=== PATIENT | male | born 1960 | race Caucasian/White ===

== ENCOUNTER 2019-12-26 15:28 | Emergency (ER) | payer MEDICARE, MEDICAID ==
[~2019-12-26] VITALS: Ht 185.4 cm; Wt 123.0 kg
[~2019-12-26 15:28] MED LIST: IBUP-1985 PO
[2019-12-26] MEDS ORDERED: traMADol 50MG tablet PO ONE (16:15)
[2019-12-26] MEDS ORDERED: ketorolac tromethamine 15mg/ml inj. IM ONE (16:15)
== END 2019-12-26 17:15 | disposition home or self-care (01) ==
LOC: ER 15:28
DX: S80.212A Abrasion, left knee, initial encounter (principal); M54.5 Low back pain; G89.29 Other chronic pain; M79.604 Pain in right leg; E11.9 Type 2 diabetes mellitus without complications; F17.220 Nicotine dependence, chewing tobacco, uncomplicated; F15.90 Other stimulant use, unspecified, uncomplicated; F12.90 Cannabis use, unspecified, uncomplicated; Z56.0 Unemployment, unspecified; Z79.899 Other long term (current) drug therapy; X58.XXXA Exposure to other specified factors, initial encounter; Y93.89 Activity, other specified; Y92.89 Other specified places as the place of occurrence of the external cause; Y99.8 Other external cause status
CPT/HCPCS: 72100; 96372; 99284; J1885

== ENCOUNTER 2019-12-30 15:00 | Emergency (ER) | payer MEDICARE, MEDICAID ==
[~2019-12-30] VITALS: Ht 185.4 cm; Wt 122.0 kg
[2019-12-30] MEDS ORDERED: dexamethasone 4mg tablet PO ONE (15:45)
--- NOTE | 2019-12-30 16:27 | NUR ---
MRI screening form filled out and faxed to MRI.
[2019-12-30] MEDS ORDERED: ketorolac trometh. 30mg/ml inj. IM ONE (17:55)
[2019-12-30] MEDS ORDERED: acetaminophen 325mg tablet PO ONE (17:55)
[2019-12-30 18:17] VITALS: BP 139/95
== END 2019-12-30 18:18 | disposition home or self-care (01) ==
LOC: ER 15:01
DX: R19.4 Change in bowel habit (principal); M54.5 Low back pain; E11.9 Type 2 diabetes mellitus without complications; G89.29 Other chronic pain; F12.90 Cannabis use, unspecified, uncomplicated; F15.90 Other stimulant use, unspecified, uncomplicated; Z56.0 Unemployment, unspecified; Z98.890 Other specified postprocedural states
CPT/HCPCS: 72148; 96372; 99284; J1885

== ENCOUNTER 2023-10-25 11:25 | Emergency (ER) | payer MEDICARE, MEDICAID ==
[~2023-10-25] VITALS: Ht 185.4 cm; Wt 101.7 kg
[2023-10-25 11:30] VITALS: BP 159/68; PULSE 79; RESP 16; TEMP 98.7; O2SAT 99
[2023-10-25] MEDS ORDERED: NAPR-56 PO (11:51)
== END 2023-10-25 12:04 | disposition home or self-care (01) ==
LOC: ER 11:25
DX: M25.561 Pain in right knee (principal); G89.29 Other chronic pain; E11.9 Type 2 diabetes mellitus without complications; F15.90 Other stimulant use, unspecified, uncomplicated; F12.90 Cannabis use, unspecified, uncomplicated; Z56.0 Unemployment, unspecified; Z79.899 Other long term (current) drug therapy
CPT/HCPCS: 99282

== ENCOUNTER 2024-05-02 20:11 | Emergency (ER) | payer BC, MEDICAID ==
[~2024-05-02] VITALS: Ht 185.4 cm; Wt 100.0 kg
[2024-05-02 20:13] VITALS: BP 130/70; PULSE 77; RESP 15; TEMP 98.8; O2SAT 95
[2024-05-02] MEDS: TETanus/Pertussis (Acell)/Diphther VAC/PF (Tdap-Adult) 0.5ml syringe IMVAC ONE (20:42)
[2024-05-02] MEDS: LIDOcaine 1% 30ml preserv. free vial IJ STA (21:16)
== END 2024-05-02 21:21 | disposition home or self-care (01) ==
LOC: ER 20:12
DX: S69.81XA Other specified injuries of right wrist, hand and finger(s), initial encounter (principal); E11.9 Type 2 diabetes mellitus without complications; G89.29 Other chronic pain; M54.9 Dorsalgia, unspecified; F12.90 Cannabis use, unspecified, uncomplicated; F15.90 Other stimulant use, unspecified, uncomplicated; Z98.890 Other specified postprocedural states; Z56.0 Unemployment, unspecified; Z79.1 Long term (current) use of non-steroidal anti-inflammatories (NSAID); W18.49XA Other slipping, tripping and stumbling without falling, initial encounter; Y93.89 Activity, other specified; Y92.89 Other specified places as the place of occurrence of the external cause; Y99.8 Other external cause status
CPT/HCPCS: 64450; 99284; A6449

== ENCOUNTER 2025-03-28 13:25 | Emergency (ER) | payer BC, MEDICAID ==
[~2025-03-28] VITALS: Ht 185.4 cm; Wt 113.6 kg
[2025-03-28 13:28] VITALS: BP 151/83; PULSE 77; O2SAT 96
--- NOTE | 2025-03-28 14:15 | RADIOLOGY REPORT ---
EXAM: DI ANKLE, COMPLETE(3VW MIN) CLINICAL INDICATION: ANKLE PAIN TECHNIQUE: DI ANKLE, COMPLETE(3VW MIN) Comparison: None FINDINGS/IMPRESSION: There is a vague lucency involving the distal fibula, which could represent a nondisplaced fracture. CT recommended.
[2025-03-28] MEDS: HYDROcodone/acetaminophen 10/325mg tab PO ONE (14:30)
--- NOTE | 2025-03-28 14:47 | Physician Documentation ---
History of Present Illness ~ Chief Complaint: Foot pain Stated Complaint: L FOOT INJURY Time Seen by MD: 14:06 OK to notify your PCP?: Yes Primary Medical Doctor: [facility] Source: patient Mode of Arrival: Wheelchair Exam Limitations: no limitations HPI Walter is a 64-year-old male presenting with left ankle pain after rolling it 5 days ago. He states he received an x-ray at the time which was negative for a fracture although the swelling appears to be getting worse, unable to ambulate and he has pain into the back of his leg. Yesterday as he was moving his foot he heard a loud popping sound with increased pain. He was treating at home with ibuprofen last dose couple days ago. No history of diabetes. Tetanus witin 5 years: Yes Medication Reconciliation Allergies: Coded Allergies: No Known Allergies (Unverified , 05/02/24) Scheduled PRN Hydrocodone Bit/Acetaminophen (Hydrocodon-Acetaminophn 10-325 tablet), 1 TAB PO QID PRN PRN for pain Ibuprofen (Ibuprofen), 1 TAB PO Q8H PRN for pain Naproxen (Naproxen), 1 TAB PO Q12H PRN for pain Past Medical History Past Medical History: Diabetes, Chronic Back Pain Past Surgical History: orthopedic surgeries Other Past Family History: noncontributory Alcohol Use: Rarely Drug Use: marijuana, methamphetamine Lives with: Spouse Lives In: Home Occupation: unemployed Review of Systems All Other Systems at this time: Reviewed and Negative Physical Exam Vital Signs: RN Vital Signs have been reviewed: Yes, Temperature: 97.6, Source: Oral, Heart Rate: 77, Respiratory Rate: 16, BP: 151/83, Pulse Oximetry: 96, Weight: 113.640 Pulse Oximetry Reflects: adequate oxygenation Physical Exam General: Alert, no apparent distress. HEENT: PERRL, EOMI, no injection, moist mucous membranes. Neck: Full range of motion. Respiratory: Lungs clear, no respiratory distress. Chest: No accessory muscle use. Cardiovascular: Regular rate and rhythm. Gastrointestinal: Soft, nontender, nondistended. Bowels sounds present. Extremities: edema and erythema to left foot and ankle. Tenderness to palpation of foot, ankle, and Achilles tendon. Normal range of motion of toes on left foot, pulses intact. Neurologic: Oriented x4. Psychiatric: Normal mood and affect. Skin: Normal color, warm and dry. Progress Results/Orders Reviewed/noted all lab results: Yes Results/Orders Orders - ISABEL GARG Ct Lower Extremity (03/28/25 14:35) Ortho Orders (03/28/25 ) Completed Orders - ISABEL GARG FREIGHT BROKER Hydrocodone/Apap 10/325 ([place] 10/325mg (03/28/25 14:15) Ct Lower Extremity (03/28/25 14:35) Medications Received in ER Medications (Trade) Dose Ordered Sig/Melvin Route PRN Reason Start Time Stop Time Status Last Admin Dose Admin (Audubon 10/325mg tab) 1 tab ONCE ONCE PO 03/28/25 14:15 03/28/25 14:16 DC 03/28/25 14:30 1 TAB Vital Signs 03/28/25 03/28/25 13:28 14:30 Temp 97.6 Pulse 77 Resp 18 16 B/P (MAP) 151/83 Pulse Ox 96 EKG/XRAY/CT/US/VASC/MRI Bone/Soft Tissue X-Ray (Ext.) : Additional Comment left ankle x-ray as interpreted by me; no joint effusion, +soft tissue swelling, no dislocation, or foreign body. CT : Impression CT of left ankle scan as interpreted by me, nondisplaced fracture of the medial malleolus on the left tibia. No dislocation. Joint space maintained. Medical Decision Making Findings Walter is a 64-year-old male presenting with left ankle pain and swelling for the past 5 days after rolling it which appears to be worsening. He had a prior x- ray of his ankle which was negative for an acute fracture and he was given crutches and told to do supportive care. Yesterday he was moving his foot and heard a loud pop noise with increased pain. He was taking ibuprofen at home last dose couple of days ago, I ordered a [place] for pain relief while here in the department. An ankle x-ray w was ordered which, could not rule out possibility of fracture and the radiologist recommended a CT scan for further imaging. A CT scan was then ordered. CT scan revealed nondisplaced fracture of the medial malleolus. A posterior short-leg splint with a stirrup was applied and the patient is going to use his own crutches. He agrees to follow up with his primary care provider in the next 3 days for a referral to Orthopedics. He has been prescribed [place] and naproxen for pain relief at home. He has been educated to elevate the leg above the level of heart to help decrease inflammation and return back here for any new or worsening symptoms. General Diff Dx:Considerations: Include: Abrasion, Contusion, Fracture, Hematoma, Malunion, Neurovascular injury, Sprain Ankle Diff Dx:Considerations: Include: Abrasion Foot Diff Dx:Considerations: Include: Abrasion, Arthritis, Contusion, Dislocation, DJD Departure Disposition: 01 HOME / SELF CARE / HOMELESS Impression: Primary Impression: Fracture of medial malleolus of left tibia Condition: Stable Discharge Instructions: Ankle Fracture Additional Instructions: Please take the opioid pain medication as prescribed. Do not operate heavy machinery, drive a car, exercise or perform important tasks while taking this medication as it can make you drowsy and prone to mental lapses. This medication can be addictive, so please only take as needed. This medication can cause your breathing to dangerously slow down if you take too much, so please only take as directed. This medication can make you constipated, so please stay well hydrated and take fiber supplements. Return to the emergency department if this medication does not control her pain and be sure to follow up with primary care provider as advised. * Follow up in the next 3 days with your primary care provider for a referral to Orthopedics. Return to the emergency department for any new or worsening symptoms. Use the prescribed naproxen for relief from pain and swelling. Keep leg elevated above heart level to reduce swelling. Referrals: NO PRIMARY CARE PROVIDER (PCP) Prescriptions Hydrocodone Bit/Acetaminophen (Hydrocodon-Acetaminophn 10-325 tablet) 10mg- 325mg Tablet 1 TAB PO QID PRN PRN for pain for 5 Days, #20 TAB Prov: ISABEL GARG FREIGHT BROKER 03/28/25 Naproxen (Naproxen) 500 Mg Tablet 1 TAB PO Q12H PRN for pain, #20 TAB Prov: ISABEL GARG FREIGHT BROKER 03/28/25 Education Educated: Patient Educated regarding: diagnosis, treatment, prognosis, need for follow up Signature Scribe Signature: . Attestation: Scribed for Isabel Garg [employer] Developer by Isabel Schneider NP . 03/28/25 16:04 ISABEL GARG [facility] March 28, 2025 14:47
--- NOTE | 2025-03-28 15:40 | RADIOLOGY REPORT ---
EXAM: CT CT LOWER EXTREMITY INDICATION: left ankle pain, x-ray recommended CT EXAM DATE: 03/28/2025 02:48 PM COMPARISON: None TECHNIQUE: Multiple axial CT images of the left ankle were obtained using bone algorithm. Axial and c oronal reformatting was done. Bone and soft tissue windows were reviewed. Radiation Dose Information: CT Dose: CTDI volume is 14.36 mGy. Dose-length product is 341.03 mGy*cm Findings/Impression: Nondisplaced fracture of the lateral malleolus extending into the fibular meta diaphysis. Nondisplace d fracture of the medial malleolus. There is no evidence of dislocation, blastic, or lytic lesions. No radiopaque foreign bodies. No joint effusion. Mild diffuse soft tissue edema.
[2025-03-28] MEDS ORDERED: NAPR-56 PO (15:59)
[2025-03-28] MEDS ORDERED: HYDR-3972 PO (15:59)
[2025-03-28 16:31] VITALS: RESP 14
[2025-03-28 17:34] VITALS: TEMP 97.6
== END 2025-03-28 17:38 | disposition home or self-care (01) ==
LOC: ER 13:26
DX: S82.55XA Nondisplaced fracture of medial malleolus of left tibia, initial encounter for closed fracture (principal); E11.9 Type 2 diabetes mellitus without complications; X50.1XXA Overexertion from prolonged static or awkward postures, initial encounter; Y93.89 Activity, other specified; Y92.89 Other specified places as the place of occurrence of the external cause; Y99.8 Other external cause status
CPT/HCPCS: 29515; 73610; 73700; 99284; A6446; A6449